=== PATIENT | male | born 1965 | race African-American/Black ===

== ENCOUNTER 2017-01-04 17:19 | Emergency (ER) | payer MEDICAID ==
[~2017-01-04] VITALS: Ht 175.3 cm; Wt 75.0 kg
[2017-01-04] MEDS ORDERED: IBUPROFEN 600MG TABLET PO ONE (23:45)
[2017-01-05] MEDS ORDERED: HYDROCODONE/ACETAMINOPHEN 5/325MG TABLET PO ONE (00:45)
[2017-01-05 04:45] VITALS: BP 108/67
== END 2017-01-05 05:08 | disposition home or self-care (01) ==
LOC: ER 18:32
DX: S02.40FA Zygomatic fracture, left side, initial encounter for closed fracture (principal); Z88.0 Allergy status to penicillin; X58.XXXA Exposure to other specified factors, initial encounter; Y93.89 Activity, other specified; Y92.89 Other specified places as the place of occurrence of the external cause; Y99.8 Other external cause status
CPT/HCPCS: 70450; 70486; 99284

== ENCOUNTER 2017-03-07 18:04 | Emergency (ER) | payer MEDICAID ==
[~2017-03-07] VITALS: Ht 182.9 cm; Wt 95.0 kg
[2017-03-08] MEDS: HYDROCODONE/ACETAMINOPHEN 5/325MG TABLET PO ONE (01:32)
[2017-03-08 01:35] VITALS: BP 125/86
== END 2017-03-08 01:52 | disposition home or self-care (01) ==
LOC: ER 21:44
DX: S09.90XA Unspecified injury of head, initial encounter (principal); M79.642 Pain in left hand; Z88.0 Allergy status to penicillin; Y08.89XA Assault by other specified means, initial encounter; Y93.89 Activity, other specified; Y92.89 Other specified places as the place of occurrence of the external cause; Y99.8 Other external cause status
CPT/HCPCS: 70450; 70486; 73130; 99284

== ENCOUNTER 2018-02-13 21:14 | Emergency (ER) | payer MEDICAID ==
[~2018-02-13] VITALS: Ht 182.9 cm; Wt 91.0 kg
[2018-02-14] MEDS ORDERED: LIDOCAINE HCL/PF 1% 2ML VIAL INFIL ONE (03:00)
[2018-02-14] MEDS ORDERED: TETANUS, DIPHTHERIA, PERTUSSIS VAC/PF 0.5ML (>7YR OLD) IM ONE (03:00)
[2018-02-14] MEDS ORDERED: BACITRACIN ZINC OINT UDPKT TOP ONE (03:00)
[2018-02-14 04:52] VITALS: BP 111/77
== END 2018-02-14 04:53 | disposition home or self-care (01) ==
LOC: ER 21:14
DX: L03.012 Cellulitis of left finger (principal); Z88.0 Allergy status to penicillin
CPT/HCPCS: 10060; 90471; 90715; 99283; J3490; X7700; Z7610